=== PATIENT | female | born 1940 | race Caucasian/White ===

== ENCOUNTER 2020-02-27 02:46 | Inpatient (IN) ==
[2020-02-27] MEDS ORDERED: ACETAMINOPHEN 325 MG TABLET PO PRN (03:58)
[2020-02-27] MEDS ORDERED: SODIUM CHLORIDE 0.9% 1,000 ML IV PRN ×2 (03:58→18:05)
[2020-02-27] MEDS ORDERED: ALBUTEROL 2.5 MG/3 ML NEB RESP TX PRN (03:58)
[2020-02-27] MEDS ORDERED: DEXTROSE 50% 25 GM/50 ML VIAL IV PRN (04:49)
[2020-02-27] MEDS ORDERED: GLUCAGON 1 MG VIAL IM PRN (04:49)
[2020-02-27 06:45] LABS: Basophils # 0.1 10*3/uL (0.0-0.2); Basophils % 0.6 % (0.0-0.8); Eosinophils % 0.3 % (0.00-10.9); Immature Granulocytes % 0.5 %; Immature Granulocytes Absolute 0.04 #; Lymphocytes % 22.2 % (21.3-54.2); Mean Corpuscular HGB Conc 30.5 GM/DL (32-36); Mean Corpuscular Volume 84.1 FL (87-102); Mean Platelet Volume 11.2 FL (9.6-12.0); Monocytes % 8.5 % (1.7-12.7); Neutrophils % 67.9 % (38.7-73.9); Platelet Count 239 T/CUMM (130-400); Red Blood Count 2.26 MC/CUMM (3.8-5.5); Red Cell Distribution Width 15.4 % (9.3-17.3); White Blood Count 8.8 T/CUMM (4-12)
[2020-02-27 06:46] LABS: Albumin 3.2 G/DL (3.4-5.0); Bilirubin,Total 0.5 MG/DL (0.2-1.0); Calcium 8.7 MG/DL (8.5-10.1); Osmolality,Calculated 291.8 MOS/KG (273-304); Total Protein 7.4 G/DL (6.4-8.3)
[2020-02-27 07:06] LABS: Hemoglobin 5.8 GM/DL (12.0-16.0)
[2020-02-27] MEDS: INSULIN REGULAR 100 UNIT/ML SUBCUT SCH ×4 (08:30→20:37)
[2020-02-27] MEDS ORDERED: PANTOPRAZOLE 40 MG VIAL IV SCH (09:00)
[2020-02-27 09:28] LABS: % Iron Saturation 2.6 % (18-50); Ferritin 6.8 ng/ml (8-252)
[2020-02-27] MEDS ORDERED: ATORVASTATIN 40 MG TABLET PO SCH (09:30)
[2020-02-27] MEDS: LEVOTHYROXINE 25 MCG TABLET PO SCH (11:17)
[2020-02-27] MEDS: PANTOPRAZOLE 40 MG VIAL IV SCH ×2 (11:17→20:37)
[2020-02-27] MEDS: FENOFIBRATE 160 MG TABLET PO SCH (11:17)
[2020-02-27] MEDS: OXYBUTYNIN XL 10 MG TABLET PO SCH (11:17)
[2020-02-27 14:57] LABS: Hematocrit 26.3 VOL% (35.7-47.0); Hemoglobin 8.2 GM/DL (12.0-16.0)
[2020-02-27 15:29] LABS: INR 1.2
[2020-02-27 16:35] LABS: Hematocrit 27.5 VOL% (35.7-47.0); Hemoglobin 8.6 GM/DL (12.0-16.0)
[2020-02-27] MEDS: ONDANSETRON 4 MG/2 ML VIAL IV PRN (19:02)
[2020-02-27] MEDS: ATORVASTATIN 40 MG TABLET PO SCH (20:37)
[2020-02-27] MEDS: METOPROLOL TARTRATE 25 MG TABLET PO SCH (20:37)
[2020-02-27] MEDS: SERTRALINE 25 MG TABLET PO SCH (20:37)
[2020-02-27 21:53] LABS: Hematocrit 27.2 VOL% (35.7-47.0); Hemoglobin 8.5 GM/DL (12.0-16.0)
[2020-02-28 06:06] LABS: Basophils # 0.1 10*3/uL (0.0-0.2); Basophils % 0.4 % (0.0-0.8); Eosinophils # 0.4 10*3/uL (0.0-0.87); Hematocrit 31.2 VOL% (35.7-47.0); Hemoglobin 10.1 GM/DL (12.0-16.0); Immature Granulocytes % 0.6 %; Immature Granulocytes Absolute 0.07 #; Lymphocytes # 1.3 10*3/uL (1.4-4.0); Lymphocytes % 10.3 % (21.3-54.2); Mean Corpuscular HGB Conc 32.4 GM/DL (32-36); Mean Platelet Volume 10.9 FL (9.6-12.0); Monocytes % 7.3 % (1.7-12.7); Neutrophils % 78.4 % (38.7-73.9); Platelet Count 210 T/CUMM (130-400); Red Blood Count 3.63 MC/CUMM (3.8-5.5); Red Cell Distribution Width 15.1 % (9.3-17.3); White Blood Count 12.6 T/CUMM (4-12)
[2020-02-28 06:13] LABS: INR 1.2; PT Patient Result 12.9 SECS (9.8-11.9)
[2020-02-28 06:25] LABS: Calcium 8.7 MG/DL (8.5-10.1); Osmolality,Calculated 286.5 MOS/KG (273-304)
[2020-02-28 06:36] LABS: CKMB % 4.6 %
[2020-02-28 06:43] LABS: Troponin I 1.28 NG/ML (0.00-0.045)
[2020-02-28] MEDS ORDERED: LACTATED RINGERS 1,000 ML IV SCH ×2 (08:00)
[2020-02-28] MEDS: INSULIN REGULAR 100 UNIT/ML SUBCUT SCH ×4 (08:28→21:04)
[2020-02-28] MEDS ORDERED: FUROSEMIDE 40 MG/4 ML VIAL IV ONE (10:02)
[2020-02-28 10:23] LABS: Basophils # 0.1 10*3/uL (0.0-0.2); Basophils % 0.4 % (0.0-0.8); Eosinophils # 0.3 10*3/uL (0.0-0.87); Eosinophils % 1.9 % (0.00-10.9); Hematocrit 34.3 VOL% (35.7-47.0); Hemoglobin 10.9 GM/DL (12.0-16.0); Immature Granulocytes % 0.6 %; Immature Granulocytes Absolute 0.08 #; Lymphocytes # 1.4 10*3/uL (1.4-4.0); Lymphocytes % 10.3 % (21.3-54.2); Mean Corpuscular HGB Conc 31.8 GM/DL (32-36); Mean Corpuscular Volume 87.1 FL (87-102); Mean Platelet Volume 10.6 FL (9.6-12.0); Monocytes % 7.1 % (1.7-12.7); Neutrophils % 79.7 % (38.7-73.9); Platelet Count 218 T/CUMM (130-400); Red Blood Count 3.94 MC/CUMM (3.8-5.5); Red Cell Distribution Width 15.2 % (9.3-17.3); White Blood Count 13.3 T/CUMM (4-12)
[2020-02-28 10:32] LABS: ABG HCO3 24.3 MMOL/L (20-26); ABG Oxygen Saturation 92.5 % (95-100); ABG PCO2 43.5 MM HG (35-48); ABG PH 7.373 (7.35-7.45); ABG PO2 65.9 MM HG (80-95); ABG TCO2 23.1 MMOL/L (23-27); Allen Test Positive
[2020-02-28] MEDS: LEVOTHYROXINE 25 MCG TABLET PO SCH (11:13)
[2020-02-28] MEDS: METOPROLOL TARTRATE 25 MG TABLET PO SCH ×2 (11:13→21:20)
[2020-02-28] MEDS: OXYBUTYNIN XL 10 MG TABLET PO SCH (11:13)
[2020-02-28] MEDS: FENOFIBRATE 160 MG TABLET PO SCH (11:13)
[2020-02-28] MEDS: PANTOPRAZOLE 40 MG VIAL IV SCH ×2 (11:32→21:07)
[2020-02-28] MEDS: CEFEPIME 1,000 MG in SODIUM CHLORIDE 0.9% 100 ML IV SCH ×2 (11:32→19:55)
[2020-02-28] MEDS: methylPREDNISolone SOD SUC 40 MG/1 ML VIAL IV SCH ×3 (11:32→23:28)
[2020-02-28 11:36] LABS: Apearance,Urine CLEAR (Clear); Bilirubin,Urine Negative (Negative); Blood, Urine Negative (Negative); Glucose,Urine (UA) Negative (Negative); Ketones,Urine Negative (Negative); Mucus,Urine Occasional /LPF (Occasional); Nitrite,Urine Negative (Negative); Protein,Urine Negative; RBC,Urine 1 /HPF (0-4); Squamous Epithelial Cell,Urine Occasional /HPF (0-10); Urine Color Yellow (Yellow); Urine Specific Gravity 1.013 (1.001-1.035); Urine Urobilinogen < 2.0 EU/DL (0.2-1.0)
[2020-02-28] MEDS: ALBUTEROL/IPRATROPIUM 3 ML NEB RESP TX SCH ×3 (15:15→23:40)
[2020-02-28] MEDS: FUROSEMIDE 40 MG/4 ML VIAL IV SCH (16:08)
[2020-02-28] MEDS ORDERED: LACTULOSE 20 GM/30 ML UDCUP PO PRN (21:00)
[2020-02-28] MEDS: SERTRALINE 25 MG TABLET PO SCH (21:20)
[2020-02-28] MEDS: ATORVASTATIN 40 MG TABLET PO SCH (21:20)
[2020-02-29] MEDS: ALBUTEROL/IPRATROPIUM 3 ML NEB RESP TX SCH ×3 (04:03→19:40)
[2020-02-29 04:33] LABS: Hematocrit 28.6 VOL% (35.7-47.0); Immature Granulocytes % 0.6 %; Immature Granulocytes Absolute 0.03 #; Lymphocytes # 0.6 10*3/uL (1.4-4.0); Lymphocytes % 12.1 % (21.3-54.2); Mean Corpuscular HGB Conc 31.5 GM/DL (32-36); Mean Corpuscular Volume 87.2 FL (87-102); Mean Platelet Volume 11.4 FL (9.6-12.0); Monocytes % 2.1 % (1.7-12.7); Neutrophils % 85.2 % (38.7-73.9); Platelet Count 163 T/CUMM (130-400); Red Blood Count 3.28 MC/CUMM (3.8-5.5); Red Cell Distribution Width 15.7 % (9.3-17.3); White Blood Count 4.8 T/CUMM (4-12)
[2020-02-29] MEDS: CEFEPIME 1,000 MG in SODIUM CHLORIDE 0.9% 100 ML IV SCH ×4 (04:33→21:40)
[2020-02-29 04:47] LABS: Calcium 8.2 MG/DL (8.5-10.1); Osmolality,Calculated 292.7 MOS/KG (273-304)
[2020-02-29 04:56] LABS: ABG PCO2 42.8 MM HG (35-48); ABG PH 7.434 (7.35-7.45); ABG TCO2 26.1 MMOL/L (23-27)
[2020-02-29] MEDS: methylPREDNISolone SOD SUC 40 MG/1 ML VIAL IV SCH ×3 (05:43→23:44)
[2020-02-29] MEDS ORDERED: MAGNESIUM SULF RIDER 2 GM in PREMIX 1 EACH IV ONE (08:27)
[2020-02-29] MEDS: METOPROLOL TARTRATE 25 MG TABLET PO SCH ×2 (09:00→22:48)
[2020-02-29] MEDS ORDERED: FUROSEMIDE 40 MG/4 ML VIAL IV SCH (09:00)
[2020-02-29] MEDS: FUROSEMIDE 40 MG/4 ML VIAL IV SCH ×2 (09:00→21:36)
[2020-02-29] MEDS: LEVOTHYROXINE 25 MCG TABLET PO SCH (09:20)
[2020-02-29] MEDS: LACTULOSE 20 GM/30 ML UDCUP PO SCH ×2 (09:20→22:48)
[2020-02-29] MEDS: FENOFIBRATE 160 MG TABLET PO SCH (09:20)
[2020-02-29] MEDS: CLOPIDOGREL 75 MG TABLET PO SCH (09:20)
[2020-02-29] MEDS: OXYBUTYNIN XL 10 MG TABLET PO SCH (09:20)
[2020-02-29] MEDS: INSULIN REGULAR 100 UNIT/ML SUBCUT SCH ×5 (09:20→21:34)
[2020-02-29] MEDS: PANTOPRAZOLE 40 MG VIAL IV SCH ×2 (09:25→21:34)
[2020-02-29] MEDS: INSULIN GLARGINE 100 UNIT/ML SUBCUT SCH (21:33)
[2020-02-29] MEDS: SERTRALINE 25 MG TABLET PO SCH (21:39)
[2020-02-29] MEDS: ATORVASTATIN 40 MG TABLET PO SCH (21:39)
[2020-03-01] MEDS: ALBUTEROL/IPRATROPIUM 3 ML NEB RESP TX SCH ×6 (00:08→20:21)
[2020-03-01] MEDS: CEFEPIME 1,000 MG in SODIUM CHLORIDE 0.9% 100 ML IV SCH ×2 (03:09→11:11)
[2020-03-01 05:30] LABS: Basophils % 0.1 % (0.0-0.8); Hematocrit 29.9 VOL% (35.7-47.0); Hemoglobin 9.5 GM/DL (12.0-16.0); Immature Granulocytes Absolute 0.08 #; Lymphocytes # 0.4 10*3/uL (1.4-4.0); Lymphocytes % 5.1 % (21.3-54.2); Mean Corpuscular HGB Conc 31.8 GM/DL (32-36); Mean Corpuscular Volume 86.7 FL (87-102); Mean Platelet Volume 10.9 FL (9.6-12.0); Monocytes % 5.6 % (1.7-12.7); Neutrophils % 88.2 % (38.7-73.9); Platelet Count 164 T/CUMM (130-400); Red Blood Count 3.45 MC/CUMM (3.8-5.5); Red Cell Distribution Width 15.9 % (9.3-17.3)
[2020-03-01 05:52] LABS: Calcium 8.9 MG/DL (8.5-10.1); Osmolality,Calculated 288.7 MOS/KG (273-304)
[2020-03-01] MEDS ORDERED: LACTATED RINGERS 1,000 ML IV SCH (08:00)
[2020-03-01] MEDS: INSULIN REGULAR 100 UNIT/ML SUBCUT SCH ×4 (08:04→22:07)
[2020-03-01] MEDS ORDERED: propofoL 200 MG/20 ML VIAL IV ONE (09:00)
[2020-03-01] MEDS ORDERED: ETOMIDATE 20 MG/10 ML VIAL IV ONE (09:00)
[2020-03-01] MEDS ORDERED: LIDOCAINE 2% 5 ML VIAL ONE (09:00)
[2020-03-01] MEDS: CLOPIDOGREL 75 MG TABLET PO SCH (12:47)
[2020-03-01] MEDS: METOPROLOL TARTRATE 25 MG TABLET PO SCH (12:47)
[2020-03-01] MEDS: methylPREDNISolone SOD SUC 40 MG/1 ML VIAL IV SCH (12:47)
[2020-03-01] MEDS: LACTULOSE 20 GM/30 ML UDCUP PO SCH ×2 (12:47→22:06)
[2020-03-01] MEDS: LEVOTHYROXINE 25 MCG TABLET PO SCH (12:47)
[2020-03-01] MEDS: FENOFIBRATE 160 MG TABLET PO SCH (12:47)
[2020-03-01] MEDS: OXYBUTYNIN XL 10 MG TABLET PO SCH (12:47)
[2020-03-01] MEDS: INSULIN GLARGINE 100 UNIT/ML SUBCUT SCH ×2 (12:48→22:07)
[2020-03-01] MEDS: FUROSEMIDE 40 MG/4 ML VIAL IV SCH (12:49)
[2020-03-01] MEDS: PANTOPRAZOLE 40 MG VIAL IV SCH (12:50)
[2020-03-01] MEDS ORDERED: DEXTROSE 10% 250 ML BAG IV PRN (15:00)
[2020-03-01] MEDS: PANTOPRAZOLE 40 MG TABLET PO SCH (22:06)
[2020-03-01] MEDS: PROPRANOLOL 10 MG TABLET PO SCH (22:06)
[2020-03-01] MEDS: SERTRALINE 25 MG TABLET PO SCH (22:06)
[2020-03-01] MEDS: ATORVASTATIN 40 MG TABLET PO SCH (22:07)
[2020-03-02] MEDS: ALBUTEROL/IPRATROPIUM 3 ML NEB RESP TX SCH ×7 (00:04→19:40)
[2020-03-02 05:21] LABS: Hematocrit 29.4 VOL% (35.7-47.0); Hemoglobin 9.3 GM/DL (12.0-16.0); Immature Granulocytes % 0.7 %; Immature Granulocytes Absolute 0.07 #; Lymphocytes # 0.9 10*3/uL (1.4-4.0); Lymphocytes % 9.4 % (21.3-54.2); Mean Corpuscular HGB Conc 31.6 GM/DL (32-36); Mean Corpuscular Volume 85.5 FL (87-102); Mean Platelet Volume 11.6 FL (9.6-12.0); Monocytes % 11.2 % (1.7-12.7); Neutrophils % 78.7 % (38.7-73.9); Platelet Count 171 T/CUMM (130-400); Red Blood Count 3.44 MC/CUMM (3.8-5.5); Red Cell Distribution Width 15.8 % (9.3-17.3); White Blood Count 9.8 T/CUMM (4-12)
[2020-03-02 05:48] LABS: Calcium 8.8 MG/DL (8.5-10.1)
[2020-03-02 07:14] LABS: Hepatitis B Core IgM Quant < 0.05 Index; Hepatitis B Surface Ag Quant < 0.10 Index; Hepatitis B Surface Ag Result Negative (Negative); Hepatitis C Virus Ab Quant 0.13 Index; Hepatitis C Virus Ab Result Negative (Negative)
[2020-03-02] MEDS: INSULIN REGULAR 100 UNIT/ML SUBCUT SCH ×4 (08:35→21:02)
[2020-03-02] MEDS: PROPRANOLOL 10 MG TABLET PO SCH ×3 (08:38→21:03)
[2020-03-02] MEDS: FUROSEMIDE 40 MG TABLET PO SCH (09:05)
[2020-03-02] MEDS: OXYBUTYNIN XL 10 MG TABLET PO SCH (09:05)
[2020-03-02] MEDS: predniSONE 20 MG TABLET PO SCH (09:05)
[2020-03-02] MEDS: PANTOPRAZOLE 40 MG TABLET PO SCH ×2 (09:06→21:03)
[2020-03-02] MEDS: CLOPIDOGREL 75 MG TABLET PO SCH (09:06)
[2020-03-02] MEDS: INSULIN GLARGINE 100 UNIT/ML SUBCUT SCH ×2 (09:06→21:03)
[2020-03-02] MEDS: LACTULOSE 20 GM/30 ML UDCUP PO SCH ×2 (09:06→21:02)
[2020-03-02] MEDS: LEVOTHYROXINE 25 MCG TABLET PO SCH (09:06)
[2020-03-02] MEDS: FENOFIBRATE 160 MG TABLET PO SCH (09:06)
[2020-03-02] MEDS ORDERED: AZITHROMYCIN INJ 500 MG in SODIUM CHLORIDE 0.9% 250 ML IV ONE (09:17)
[2020-03-02] MEDS: cefTRIAXone 1,000 MG in SYRINGE 1 EACH IV SCH (11:15)
[2020-03-02] MEDS: ONDANSETRON 4 MG/2 ML VIAL IV PRN (13:58)
[2020-03-02] MEDS: FERROUS SULFATE 325 MG TABLET PO SCH (15:30)
[2020-03-02] MEDS: ATORVASTATIN 40 MG TABLET PO SCH (21:03)
[2020-03-02] MEDS: SERTRALINE 25 MG TABLET PO SCH (21:03)
[2020-03-03 05:20] LABS: Basophils % 0.1 % (0.0-0.8); Eosinophils # 0.1 10*3/uL (0.0-0.87); Eosinophils % 0.8 % (0.00-10.9); Hematocrit 29.1 VOL% (35.7-47.0); Hemoglobin 9.3 GM/DL (12.0-16.0); Immature Granulocytes % 0.3 %; Immature Granulocytes Absolute 0.03 #; Lymphocytes # 2.8 10*3/uL (1.4-4.0); Lymphocytes % 23.7 % (21.3-54.2); Mean Corpuscular Volume 85.6 FL (87-102); Monocytes % 14.9 % (1.7-12.7); Neutrophils % 60.2 % (38.7-73.9); Platelet Count 194 T/CUMM (130-400); White Blood Count 11.8 T/CUMM (4-12)
[2020-03-03 05:54] LABS: Calcium 8.5 MG/DL (8.5-10.1); Osmolality,Calculated 275.8 MOS/KG (273-304)
[2020-03-03] MEDS: ALBUTEROL/IPRATROPIUM 3 ML NEB RESP TX SCH ×7 (07:38→23:30)
[2020-03-03] MEDS: INSULIN REGULAR 100 UNIT/ML SUBCUT SCH ×4 (08:41→22:28)
[2020-03-03] MEDS: LACTULOSE 20 GM/30 ML UDCUP PO SCH ×2 (09:00→22:27)
[2020-03-03] MEDS: predniSONE 20 MG TABLET PO SCH (09:01)
[2020-03-03] MEDS: cefTRIAXone 1,000 MG in SYRINGE 1 EACH IV SCH (09:01)
[2020-03-03] MEDS: PANTOPRAZOLE 40 MG TABLET PO SCH ×2 (09:01→22:28)
[2020-03-03] MEDS: LEVOTHYROXINE 25 MCG TABLET PO SCH (09:01)
[2020-03-03] MEDS: FUROSEMIDE 40 MG TABLET PO SCH (09:02)
[2020-03-03] MEDS: FERROUS SULFATE 325 MG TABLET PO SCH (09:02)
[2020-03-03] MEDS: CLOPIDOGREL 75 MG TABLET PO SCH (09:02)
[2020-03-03] MEDS: PROPRANOLOL 10 MG TABLET PO SCH ×3 (09:02→22:28)
[2020-03-03] MEDS: INSULIN GLARGINE 100 UNIT/ML SUBCUT SCH ×2 (09:02→22:28)
[2020-03-03] MEDS: AZITHROMYCIN INJ 250 MG in SODIUM CHLORIDE 0.9% 150 ML IV SCH (09:06)
[2020-03-03] MEDS ORDERED: POTASSIUM CHLORIDE 20 MEQ TABLET PO ONE (12:44)
[2020-03-03] MEDS: FENOFIBRATE 160 MG TABLET PO SCH (14:06)
[2020-03-03] MEDS: OXYBUTYNIN XL 10 MG TABLET PO SCH (14:06)
[2020-03-03] MEDS: SERTRALINE 25 MG TABLET PO SCH (22:28)
[2020-03-03] MEDS: ATORVASTATIN 40 MG TABLET PO SCH (22:28)
[2020-03-04] MEDS: ALBUTEROL/IPRATROPIUM 3 ML NEB RESP TX SCH ×3 (03:24→11:39)
[2020-03-04 05:01] LABS: Eosinophils # 0.1 10*3/uL (0.0-0.87); Eosinophils % 1.3 % (0.00-10.9); Hematocrit 28.3 VOL% (35.7-47.0); Hemoglobin 8.9 GM/DL (12.0-16.0); Immature Granulocytes % 0.5 %; Immature Granulocytes Absolute 0.03 #; Lymphocytes % 32.8 % (21.3-54.2); Mean Corpuscular HGB Conc 31.4 GM/DL (32-36); Mean Platelet Volume 11.2 FL (9.6-12.0); Monocytes % 12.6 % (1.7-12.7); Neutrophils % 52.8 % (38.7-73.9); Platelet Count 126 T/CUMM (130-400); Red Blood Count 3.29 MC/CUMM (3.8-5.5); Red Cell Distribution Width 16.2 % (9.3-17.3)
[2020-03-04 05:33] LABS: Calcium 8.7 MG/DL (8.5-10.1); Osmolality,Calculated 274.8 MOS/KG (273-304)
[2020-03-04] MEDS: INSULIN REGULAR 100 UNIT/ML SUBCUT SCH ×2 (09:09→12:42)
[2020-03-04] MEDS: LEVOTHYROXINE 25 MCG TABLET PO SCH (09:17)
[2020-03-04] MEDS: PROPRANOLOL 10 MG TABLET PO SCH (09:17)
[2020-03-04] MEDS: predniSONE 20 MG TABLET PO SCH (09:18)
[2020-03-04] MEDS: FERROUS SULFATE 325 MG TABLET PO SCH (09:18)
[2020-03-04] MEDS: LACTULOSE 20 GM/30 ML UDCUP PO SCH (09:18)
[2020-03-04] MEDS: CLOPIDOGREL 75 MG TABLET PO SCH (09:18)
[2020-03-04] MEDS: PANTOPRAZOLE 40 MG TABLET PO SCH (09:18)
[2020-03-04] MEDS: INSULIN GLARGINE 100 UNIT/ML SUBCUT SCH (09:18)
[2020-03-04] MEDS: cefTRIAXone 1,000 MG in SYRINGE 1 EACH IV SCH (09:18)
[2020-03-04] MEDS: FUROSEMIDE 40 MG TABLET PO SCH (09:19)
[2020-03-04] MEDS: AZITHROMYCIN INJ 250 MG in SODIUM CHLORIDE 0.9% 150 ML IV SCH (09:28)
[2020-03-04] MEDS: OXYBUTYNIN XL 10 MG TABLET PO SCH (09:46)
[2020-03-04] MEDS: FENOFIBRATE 160 MG TABLET PO SCH (09:46)
[2020-03-04 12:48] VITALS: BP 133/65
== END 2020-03-04 14:48 | disposition home or self-care (01) | DRG 813 ==
LOC: SUPCPDRO 03:49 → SUATTDRO 03:49 → N.CC 03:49 → N.TELEN 15:52 → N.ICU 02-28 10:46 → N.TELEN 02-29 14:29
PROVIDERS: ADMIT Internal Medicine; ATTEND Internal Medicine

== ENCOUNTER 2020-12-19 12:46 | Inpatient (IN) ==
[2020-12-19] MEDS ORDERED: SODIUM CHLORIDE 0.9% 500 ML IV STA ×2 (14:55→16:31)
[2020-12-19] MEDS ORDERED: ONDANSETRON 4 MG/2 ML VIAL IV STA (14:55)
[2020-12-19 15:44] LABS: Basophils % 0.2 % (0.0-0.8); Eosinophils % 0.1 % (0.00-10.9); Hematocrit 38.5 VOL% (35.7-47.0); Hemoglobin 12.5 GM/DL (12.0-16.0); Immature Granulocytes Absolute 0.19 #; Lymphocytes # 0.9 10*3/uL (1.4-4.0); Lymphocytes % 4.5 % (21.3-54.2); Mean Corpuscular HGB Conc 32.5 GM/DL (32-36); Mean Corpuscular Volume 93.4 FL (87-102); Monocytes % 6.8 % (1.7-12.7); Neutrophils % 87.4 % (38.7-73.9); Platelet Count 174 T/CUMM (130-400); Red Blood Count 4.12 MC/CUMM (3.8-5.5); White Blood Count 19.8 T/CUMM (4-12)
[2020-12-19 16:04] LABS: Albumin 3.6 G/DL (3.4-5.0); Bilirubin,Total 0.7 MG/DL (0.2-1.0); Calcium 10.1 MG/DL (8.5-10.1); Potassium 4.3 MMOL/L (3.5-5.1); Total Protein 8.4 G/DL (6.4-8.3)
[2020-12-19 16:15] LABS: Lymphocytes 4 % (20-55); Platelet Estimate Adequate; Segmented Neutrophils 88 % (50-85); Total Cells Counted 100
[2020-12-19] MEDS ORDERED: PIPERACILLIN/TAZOBACTAM 3,375 MG in SODIUM CHLORIDE 0.9% 100 ML IV STA (16:31)
[2020-12-19] MEDS ORDERED: PIPERACILLIN/TAZOBACTAM 3,375 MG VIAL IV ONE (16:33)
[2020-12-19] MEDS ORDERED: ACETAMINOPHEN 325 MG TABLET PO PRN (17:31)
[2020-12-19] MEDS ORDERED: cefOXitin 2,000 MG in SYRINGE 1 EACH IV ONE (17:31)
[2020-12-19] MEDS ORDERED: PROMETHAZINE 25 MG/1 ML VIAL IM PRN (17:31)
[2020-12-19 18:24] LABS: Bilirubin,Urine Negative (Negative); Blood, Urine Small mg/dL (Negative); Glucose,Urine (UA) Negative (Negative); Ketones,Urine Negative (Negative); Mucus,Urine Occasional /LPF (Occasional); Nitrite,Urine Negative (Negative); Protein,Urine >=500 MG/DL; RBC,Urine 7 /HPF (0-4); Squamous Epithelial Cell,Urine Occasional /HPF (0-10); Urine Appearance CLOUDY (Clear); Urine Color Amber (Yellow); Urine Specific Gravity 1.024 (1.001-1.035); Urine Urobilinogen < 2.0 EU/DL (0.2-1.0); WBC,Urine 9 /HPF (0-6)
[2020-12-19] MEDS: LACTATED RINGERS 1,000 ML IV SCH (23:56)
[2020-12-20] MEDS: PIPERACILLIN/TAZOBACTAM 3,375 MG in SODIUM CHLORIDE 0.9% 100 ML IV SCH ×4 (01:42→18:13)
[2020-12-20 05:23] LABS: Basophils % 0.2 % (0.0-0.8); Eosinophils # 0.1 10*3/uL (0.0-0.87); Eosinophils % 0.7 % (0.00-10.9); Hematocrit 30.2 VOL% (35.7-47.0); Hemoglobin 10.1 GM/DL (12.0-16.0); Immature Granulocytes % 0.6 %; Immature Granulocytes Absolute 0.05 #; Lymphocytes # 1.4 10*3/uL (1.4-4.0); Lymphocytes % 16.2 % (21.3-54.2); Mean Corpuscular HGB Conc 33.4 GM/DL (32-36); Mean Corpuscular Volume 91.2 FL (87-102); Mean Platelet Volume 12.7 FL (9.6-12.0); Monocytes % 10.6 % (1.7-12.7); Neutrophils % 71.7 % (38.7-73.9); Platelet Count 126 T/CUMM (130-400); Red Blood Count 3.31 MC/CUMM (3.8-5.5); Red Cell Distribution Width 14.1 % (9.3-17.3); White Blood Count 8.5 T/CUMM (4-12)
[2020-12-20 05:53] LABS: Calcium 9.1 MG/DL (8.5-10.1); Osmolality,Calculated 292.3 MOS/KG (273-304); Potassium 4.2 MMOL/L (3.5-5.1)
[2020-12-20] MEDS: LACTATED RINGERS 1,000 ML IV SCH ×3 (07:20→18:00)
[2020-12-20] MEDS: CLOPIDOGREL 75 MG TABLET PO SCH (10:07)
[2020-12-20] MEDS: PANTOPRAZOLE 40 MG TABLET PO SCH (10:07)
[2020-12-20] MEDS ORDERED: GLUCAGON 1 MG VIAL IM PRN ×2 (10:53→12:10)
[2020-12-20] MEDS ORDERED: DEXTROSE 50% 25 GM/50 ML VIAL IV PRN ×2 (10:53→12:10)
[2020-12-20] MEDS: ENOXAPARIN 40 MG/0.4 ML SYRINGE SUBCUT SCH (11:02)
[2020-12-20] MEDS: INSULIN LISPRO 100 UNIT/ML SUBCUT SCH ×3 (11:18→21:31)
[2020-12-20] MEDS ORDERED: LACTULOSE 20 GM/30 ML UDCUP PO ONE (18:51)
[2020-12-21] MEDS: PIPERACILLIN/TAZOBACTAM 3,375 MG in SODIUM CHLORIDE 0.9% 100 ML IV SCH (00:15)
[2020-12-21 08:51] LABS: Basophils % 0.7 % (0.0-0.8); Eosinophils # 0.2 10*3/uL (0.0-0.87); Eosinophils % 3.8 % (0.00-10.9); Hematocrit 29.1 VOL% (35.7-47.0); Immature Granulocytes % 0.2 %; Immature Granulocytes Absolute 0.01 #; Lymphocytes # 1.4 10*3/uL (1.4-4.0); Lymphocytes % 31.5 % (21.3-54.2); Mean Corpuscular HGB Conc 34.4 GM/DL (32-36); Mean Corpuscular Volume 91.8 FL (87-102); Mean Platelet Volume 12.7 FL (9.6-12.0); Monocytes % 10.7 % (1.7-12.7); Neutrophils % 53.1 % (38.7-73.9); Red Blood Count 3.17 MC/CUMM (3.8-5.5); Red Cell Distribution Width 13.9 % (9.3-17.3); White Blood Count 4.5 T/CUMM (4-12)
[2020-12-21 08:53] LABS: Platelet Count 97 T/CUMM (130-400)
[2020-12-21 09:08] LABS: Calcium 8.5 MG/DL (8.5-10.1); Osmolality,Calculated 287.4 MOS/KG (273-304); Potassium 4.2 MMOL/L (3.5-5.1)
[2020-12-21 09:13] LABS: Platelet Estimate Decreased
[2020-12-21 09:14] LABS: Anisocytosis Slight
[2020-12-21] MEDS ORDERED: TISSUE ADHESIVE 1 EACH APPLICATOR TOP ONE (09:17)
[2020-12-21] MEDS ORDERED: LIDOCAINE 1%/EPI INJ 20 ML VIAL ONE (09:18)
[2020-12-21] MEDS ORDERED: BUPIVACAINE MPF 0.25% 30 ML VIAL ONE (09:18)
[2020-12-21] MEDS ORDERED: fentaNYL 100 MCG/2 ML VIAL ONE (11:40)
[2020-12-21] MEDS ORDERED: LACTATED RINGERS 1,000 ML IV ONE (11:42)
[2020-12-21] MEDS ORDERED: ONDANSETRON 4 MG/2 ML VIAL ONE (11:42)
[2020-12-21] MEDS ORDERED: PHENYLEPHRINE 1 MG/10 ML SYRINGE IV ONE (11:42)
[2020-12-21] MEDS ORDERED: LIDOCAINE 2% 5 ML VIAL ONE (11:42)
[2020-12-21] MEDS ORDERED: HYDROCORTISONE 100 MG VIAL ONE (11:42)
[2020-12-21] MEDS ORDERED: ROCURONIUM 50 MG/5 ML VIAL IV ONE (11:42)
[2020-12-21] MEDS ORDERED: ETOMIDATE 40 MG/20 ML VIAL IV ONE (11:42)
[2020-12-21] MEDS ORDERED: GLYCOPYRROLATE 0.4 MG/2 ML VIAL ONE (11:42)
[2020-12-21] MEDS ORDERED: SEVOFLURANE 1 UNIT/15 MINUTE INH ONE (11:42)
[2020-12-21] MEDS ORDERED: NEOSTIGMINE 10 MG/10 ML VIAL ONE (11:42)
[2020-12-21] MEDS: HYDROmorphone 2 MG/1 ML VIAL IV PRN ×2 (12:00→12:20)
[2020-12-21] MEDS ORDERED: ONDANSETRON 4 MG/2 ML VIAL IV PRN (12:00)
[2020-12-21] MEDS ORDERED: HYDROmorphone 2 MG/1 ML VIAL ONE (12:01)
[2020-12-21] MEDS: ONDANSETRON 4 MG/2 ML VIAL IV PRN (17:21)
[2020-12-21] MEDS: INSULIN LISPRO 100 UNIT/ML SUBCUT SCH ×2 (19:07→20:44)
[2020-12-21] MEDS: PANTOPRAZOLE 40 MG TABLET PO SCH (19:08)
[2020-12-21] MEDS: VENLAFAXINE 37.5 MG TABLET PO SCH (19:08)
[2020-12-21] MEDS: CLOPIDOGREL 75 MG TABLET PO SCH (19:08)
[2020-12-21] MEDS: ENOXAPARIN 40 MG/0.4 ML SYRINGE SUBCUT SCH (19:08)
[2020-12-21] MEDS: LACTULOSE 20 GM/30 ML UDCUP PO SCH (19:08)
[2020-12-21] MEDS: LACTATED RINGERS 1,000 ML IV SCH (21:33)
[2020-12-22] MEDS: HYDROmorphone 2 MG/1 ML VIAL IV PRN ×2 (01:15→15:45)
[2020-12-22] MEDS: ONDANSETRON 4 MG/2 ML VIAL IV PRN ×2 (01:15→09:20)
[2020-12-22] MEDS: LACTATED RINGERS 1,000 ML IV SCH ×3 (01:30→17:00)
[2020-12-22 07:29] LABS: Basophils % 0.4 % (0.0-0.8); Eosinophils # 0.1 10*3/uL (0.0-0.87); Eosinophils % 1.1 % (0.00-10.9); Hematocrit 32.2 VOL% (35.7-47.0); Hemoglobin 10.6 GM/DL (12.0-16.0); Immature Granulocytes % 0.5 %; Immature Granulocytes Absolute 0.05 #; Lymphocytes # 1.8 10*3/uL (1.4-4.0); Lymphocytes % 19.5 % (21.3-54.2); Mean Corpuscular HGB Conc 32.9 GM/DL (32-36); Mean Corpuscular Volume 94.7 FL (87-102); Mean Platelet Volume 12.4 FL (9.6-12.0); Monocytes % 12.7 % (1.7-12.7); Neutrophils % 65.8 % (38.7-73.9); Platelet Count 114 T/CUMM (130-400); Red Cell Distribution Width 13.7 % (9.3-17.3); White Blood Count 9.2 T/CUMM (4-12)
[2020-12-22 08:35] LABS: Calcium 8.2 MG/DL (8.5-10.1); Osmolality,Calculated 280.8 MOS/KG (273-304); Potassium 4.2 MMOL/L (3.5-5.1)
[2020-12-22] MEDS: VENLAFAXINE 37.5 MG TABLET PO SCH (08:37)
[2020-12-22] MEDS: INSULIN LISPRO 100 UNIT/ML SUBCUT SCH ×4 (08:37→21:16)
[2020-12-22] MEDS: CLOPIDOGREL 75 MG TABLET PO SCH (08:37)
[2020-12-22] MEDS: PANTOPRAZOLE 40 MG TABLET PO SCH (08:37)
[2020-12-22] MEDS: ENOXAPARIN 40 MG/0.4 ML SYRINGE SUBCUT SCH (08:37)
[2020-12-22] MEDS: LACTULOSE 20 GM/30 ML UDCUP PO SCH (08:37)
[2020-12-23] MEDS: LACTATED RINGERS 1,000 ML IV SCH ×3 (01:35→20:00)
[2020-12-23] MEDS: HYDROmorphone 2 MG/1 ML VIAL IV PRN ×2 (01:51→11:17)
[2020-12-23] MEDS: ONDANSETRON 4 MG/2 ML VIAL IV PRN ×2 (01:51→11:18)
[2020-12-23 06:10] LABS: Basophils % 0.5 % (0.0-0.8); Eosinophils # 0.2 10*3/uL (0.0-0.87); Eosinophils % 2.5 % (0.00-10.9); Hematocrit 30.3 VOL% (35.7-47.0); Hemoglobin 9.7 GM/DL (12.0-16.0); Immature Granulocytes % 0.4 %; Immature Granulocytes Absolute 0.03 #; Lymphocytes # 1.4 10*3/uL (1.4-4.0); Lymphocytes % 17.1 % (21.3-54.2); Mean Corpuscular Volume 96.2 FL (87-102); Mean Platelet Volume 12.7 FL (9.6-12.0); Monocytes % 9.6 % (1.7-12.7); Neutrophils % 69.9 % (38.7-73.9); Platelet Count 120 T/CUMM (130-400); Red Blood Count 3.15 MC/CUMM (3.8-5.5); Red Cell Distribution Width 13.4 % (9.3-17.3)
[2020-12-23 06:31] LABS: Osmolality,Calculated 277.8 MOS/KG (273-304); Potassium 3.9 MMOL/L (3.5-5.1)
[2020-12-23] MEDS: INSULIN LISPRO 100 UNIT/ML SUBCUT SCH ×4 (07:30→21:08)
[2020-12-23] MEDS: LACTULOSE 20 GM/30 ML UDCUP PO SCH (11:16)
[2020-12-23] MEDS: ENOXAPARIN 40 MG/0.4 ML SYRINGE SUBCUT SCH (11:18)
[2020-12-23] MEDS: CLOPIDOGREL 75 MG TABLET PO SCH (11:19)
[2020-12-23] MEDS: PANTOPRAZOLE 40 MG TABLET PO SCH (11:19)
[2020-12-23] MEDS: VENLAFAXINE 37.5 MG TABLET PO SCH (11:19)
[2020-12-24 05:33] LABS: Basophils % 0.3 % (0.0-0.8); Eosinophils # 0.2 10*3/uL (0.0-0.87); Eosinophils % 2.5 % (0.00-10.9); Hematocrit 26.5 VOL% (35.7-47.0); Immature Granulocytes % 0.3 %; Immature Granulocytes Absolute 0.02 #; Lymphocytes # 1.1 10*3/uL (1.4-4.0); Lymphocytes % 19.3 % (21.3-54.2); Mean Corpuscular Volume 90.4 FL (87-102); Mean Platelet Volume 12.2 FL (9.6-12.0); Monocytes % 11.3 % (1.7-12.7); Neutrophils % 66.3 % (38.7-73.9); Platelet Count 115 T/CUMM (130-400); Red Blood Count 2.93 MC/CUMM (3.8-5.5); Red Cell Distribution Width 13.2 % (9.3-17.3); White Blood Count 5.9 T/CUMM (4-12)
[2020-12-24 06:11] LABS: Calcium 7.7 MG/DL (8.5-10.1); Osmolality,Calculated 278.5 MOS/KG (273-304); Potassium 3.8 MMOL/L (3.5-5.1)
[2020-12-24] MEDS: VENLAFAXINE 37.5 MG TABLET PO SCH (10:14)
[2020-12-24] MEDS: INSULIN LISPRO 100 UNIT/ML SUBCUT SCH ×3 (10:14→17:44)
[2020-12-24] MEDS: PANTOPRAZOLE 40 MG TABLET PO SCH (10:15)
[2020-12-24] MEDS: LACTATED RINGERS 1,000 ML IV SCH ×2 (10:15→15:56)
[2020-12-24] MEDS: ENOXAPARIN 40 MG/0.4 ML SYRINGE SUBCUT SCH (10:15)
[2020-12-24] MEDS: CLOPIDOGREL 75 MG TABLET PO SCH (10:15)
[2020-12-24] MEDS ORDERED: MAGNESIUM SULF RIDER 4 GM in PREMIX 1 EACH IV ONE (10:45)
[2020-12-24 16:25] VITALS: BP 143/39
[2020-12-25] MEDS ORDERED: MAGNESIUM CHLORIDE 64 MG TABLET PO SCH (09:00)
== END 2020-12-24 17:25 | disposition home or self-care (01) | DRG 354 ==
LOC: N.ED 12:46 → N.EDINP 17:31 → N.3E 20:29
PROVIDERS: ADMIT Surgery; ATTEND Surgery